=== PATIENT | male | born 1980 | race Caucasian/White ===

== ENCOUNTER 2018-11-15 19:13 | Inpatient (IN) ==
[2018-11-15] MEDS ORDERED: Ketorolac 15 MG/ML VIAL IVP ONE (19:48)
--- NOTE | 2018-11-15 20:01 | Emergency Department Note ---
Disposition Clinical Impression: Cellulitis of scrotum Disposition: Admitted As Inpatient Condition: Good Referrals: NONE,PCP [Primary Care Provider] - Time of Disposition: 20:01 General Adult HPI - General Time Seen by Provider: 11/15/18 19:15 - Related Data Home Medications Medication Instructions Recorded Confirmed No Known Home Drugs 11/15/18 11/15/18 Allergies Allergy/AdvReac Type Severity Reaction Status Date / Time hydrocodone Allergy Hives Verified 10/05/15 17:07 Past Medical History - Past Medical History Medical history: Reports: no medical history Psychiatric history: Reports: no psych history - Social History Smoking Status: Current every day smoker Smokeless Tobacco Status: No Alcohol use: Reports: none Drug use: Reports: none Course - Consultations Consultation #1: discusseed case with Dr. ortega who will see in consult. He would like results called back if the are acute in nature ex. fourneires. otherwise no call back is needed. Time: 19:59 Attestation Statement - Attestation Attestation: I reviewed the residents documentation and agree with the residents assessment and plan of care. I have personally had face to face time with the patient. (Brief History, Brief Exam, and MDM) I personally supervised and was present for the scott/critical portions of the following procedures completed by the resident: (add procedures performed here). 38 year old male presents to the ED from [facility] for concerns of scrotal cellutlisi tosincialo was seen on aBCT today and he is having incresed swelling and redness to the area. It otherwise is not creptius and I do not appreciate gas formation among the scrotum and he is not a diabetic. He came started on vanc, we willc ontinue and add blood work and admit to medicine after consutlation with urology. Report given statse that is aware that evens will be coming to the ED for admision.
--- NOTE | 2018-11-15 20:11 | Emergency Department Note ---
Disposition Clinical Impression: Cellulitis of scrotum Disposition: Admitted As Inpatient Condition: Good Time of Disposition: 19:00 General Adult HPI - General Chief complaint: ED Urogenital-Male Stated complaint: Left testicular pain and swelling Time Seen by Provider: 11/15/18 19:15 Nursing Notes Reviewed: Yes - History of Present Illness HPI Narrative: 38M presents with 1 day history of left testicular pain and swelling from [place]. Patient is accompanied by . He reports hematuria without dysuria x 3 weeks. However, he noticed left testicular swelling and pain yesterday night that has worsened today. Of note, he reports right lower wisdom tooth was hurting him and he used a screwdriver that has removed an partial tooth. Symptoms of fever, nausea, and testicular pain worsened after this. He denies any recent testicular trauma, penile discharge, testicular bleeding, or testicular ulceration. He denies history of diabetes or hypertension, but does drink 1x [address] abdomen/pelvis without contrast at [place] demonstrated 2.6 cm cystic structure and findings consistent with cellulitis vs reactive hydrocele. There is haziness of the scrotal subcutaneous fat. Patient is here for testicular ultrasound and further work up and management. Denies CP, SOB, abdominal pain. Does admit to fatigue and feeling sick overall. Pt Subjective Complaint: Left testicular pain and swelling Onset (ago): day(s) (1) Location: genitals Pain Scale: 9 Quality: sharp, constant Consistency: constant - Related Data Home Medications Medication Instructions Recorded Confirmed No Known Home Drugs 11/15/18 11/15/18 Allergies Allergy/AdvReac Type Severity Reaction Status Date / Time hydrocodone Allergy Hives Verified 10/05/15 17:07 Review of Systems: As Per HPI Constitutional: Reports: fever Eyes: Denies: eye pain ENT ED: Denies: ear pain Cardiovascular: Denies: chest pain, palpitations Respiratory: Denies: cough Gastrointestinal: Reports: nausea. Denies: abdominal pain Genitourinary: Reports: dysuria, hematuria Musculoskeletal: Denies: back pain Integumentary: Denies: rash Neurological: Denies: headache Psychiatric: Denies: anxiety Past Medical History - Past Medical History Attestation: Yes The following information was validated with the patient. Source: patient Medical history: Reports: no medical history Psychiatric history: Reports: no psych history - Social History Smoking Status: Current every day smoker Smokeless Tobacco Status: No Alcohol use: Reports: none Drug use: Reports: none Physical Exam - General Limitations: no limitations General appearance: alert, in no apparent distress - Head Head exam: atraumatic, normocephalic, normal inspection - Eye Eye exam: Present: normal appearance, PERRL, EOMI - Expanded Eye Exam Pupils: Left: reactive - ENT ENT exam: normal exam, normal oropharynx, mucous membranes moist - Expanded ENT Exam External ear exam: Present: normal external inspection Mouth exam: Present: normal external inspection Teeth exam: Present: normal inspection Throat exam: Present: normal inspection - Neck Neck exam: Present: normal inspection, full ROM, trachea midline - Chest Chest inspection: Present: normal inspection, symmetric chest wall rise - Respiratory Respiratory exam: Present: normal lung sounds bilaterally - Cardiovascular Cardiovascular exam: Present: regular rate, normal rhythm, normal heart sounds - Abdominal Exam Abdominal exam: Present: soft, Non-Tender. Absent: tenderness, distention, guarding, rebound, rigidity - Male exam: Present: testicular tenderness (left, enlarged), scrotal swelling (left. ) - Extremities Exam Extremities exam: Present: normal inspection, full ROM. Absent: tenderness, pedal edema - Expanded Upper Extremity Exam Shoulder exam: Present: normal inspection, full ROM Arm exam: Present: normal inspection, full ROM Elbow exam: Present: normal inspection, full ROM Forearm/Wrist exam: Present: normal inspection, full ROM Hand exam: Present: normal inspection, full ROM Vascular exam: Normal: capillary refill, radial pulse - Expanded Lower Extremity Exam Hip/Pelvis exam: Present: normal inspection, full ROM Upper leg exam: Present: normal inspection, full ROM Knee exam: Present: normal inspection, full ROM Lower leg exam: Present: normal inspection, full ROM Ankle exam: Present: normal inspection, full ROM Foot/toe exam: Present: normal inspection, full ROM Neurovascular/Tendon exam: Absent: motor deficit, sensory deficit, tendon deficit - Back Exam Back exam: Present: normal inspection, full ROM. Absent: tenderness - Neurological Exam Neurological exam: Present: alert, oriented X3 - Expanded Neurological Exam Patient oriented to: Present: person, place, time Coma Scale Eye Opening: Spontaneous Coma Scale Motor Response: Obeys Commands Coma Scale Verbal Response: Oriented Coma Scale Total: 15 - Psychiatric Psychiatric exam: Present: normal affect, normal mood - Skin Skin exam: Present: warm, dry, intact, normal color Course Course Narrative: White count greater than 30. Testicular ultrasound without evidence of testicular torsion. Increased vascularity of the testes and epididymis suggesting epididymal orchitis. Patient started on Vanco and Zosyn. Start pain management - Reevaluation(s) Reevaluation #1: Dr. Guzman aware the patient will be admitted for observation and he will see him tomorrow. Vital Signs Pulse Rate 100 11/15/18 19:17 Respiratory Rate 16 11/15/18 19:17 Blood Pressure 142/93 11/15/18 19:17 O2 Sat by Pulse Oximetry 100 11/15/18 19:17 Temperature 99.9 F H 11/16/18 01:24 Pulse Rate 104 11/16/18 01:24 Respiratory Rate 16 11/16/18 01:24 Blood Pressure 148/87 11/16/18 01:24 O2 Sat by Pulse Oximetry 99 11/16/18 01:24 Oxygen Delivery Oxygen Delivery Room Air Medical Decision Making - MDM Narrative Medical decision making narrative: Patient admitted for epididymal orchitis currently on Vanc and zosyn. Urology is aware. - Medical Records Medical records reviewed: Yes I reviewed the patient's medical records. - Lab Data Lab results reviewed: Yes I reviewed the patient's lab results. Result diagrams: 11/15/18 20:24 11/15/18 20:24 Lab Results 11/15/18 11/15/18 11/15/18 Range/Units 20:24 20:24 20:25 WBC 35.3 H* (4.3-11.1) K/mcL RBC 3.97 L (4.19-5.50) M/mcL Hgb 11.7 L (12.9-16.9) g/dL Hct 35.2 L (37.5-50.1) % MCV 88.7 (83.0-100.0) fL MCH 29.5 (28.0-33.3) pg MCHC 33.2 (31.6-35.5) g/dL RDW 15.9 H (11.5-14.5) % Plt Count 280 (140-400) K/mcL MPV 9.5 (9.4-12.4) fL Seg Neutrophils % 78.0 % Band Neutrophils % 8.0 H (0-4) % Lymphocytes % 4.0 % Monocytes % 10.0 % Neutrophils # 30.4 H (1.6-8.9) K/mcL Lymphocytes # 1.4 (0.6-4.6) K/mcL Monocytes # 3.5 H (0.0-1.3) K/mcL Platelet Estimate Normal (Normal) Hypochromasia Present A (Not Present) Sodium 131 L (136-145) mEq/L Potassium 3.6 (3.5-5.1) mEq/L Chloride 97 L (98-107) mEq/L Carbon Dioxide 27 (23-29) mEq/L BUN 10 (6-20) mg/dL Creatinine 0.81 (0.70-1.30) mg/dL Est GFR ( Amer) > 60 (> 60) Est GFR (Non-Af Amer) > 60 (> 60) BUN/Creatinine Ratio 12 (6-26) Glucose 97 (70-105) mg/dL Calculated Osmolality 271 L (280-300) Lactic Acid 1.3 (0.5-2.2) mmol/L Calcium 8.6 (8.6-10.3) mg/dL Total Bilirubin 0.8 (0.3-1.0) mg/dL AST 23 (13-39) Units/L ALT 25 (7-52) Units/L Alkaline Phosphatase 73 (34-104) Units/L Serum Total Protein 6.8 (6.4-8.9) g/dL Albumin 3.7 (3.5-5.7) g/dL Globulin 3.1 (2.4-3.5) g/dL Albumin/Globulin Ratio 1.2 (1.1-2.2) - Radiology Data Radiology results reviewed: Yes I reviewed the patient's radiology results.
[2018-11-15 20:43] LABS: Mean Platelet Volume 9.5 fL (9.4-12.4); Red Cell Distribution Width 15.9 % (11.5-14.5)
[2018-11-15 20:44] LABS: Hematocrit 35.2 % (37.5-50.1); Hemoglobin 11.7 g/dL (12.9-16.9); Mean Corpuscular HGB Conc 33.2 g/dL (31.6-35.5); Mean Corpuscular Hemoglobin 29.5 pg (28.0-33.3); Mean Corpuscular Volume 88.7 fL (83.0-100.0); Platelet Count 280 K/mcL (140-400); Red Blood Count 3.97 M/mcL (4.19-5.50)
[2018-11-15 20:50] LABS: White Blood Count 35.3 K/mcL (4.3-11.1)
[2018-11-15 21:00] LABS: Alanine Aminotransferase 25 Units/L (7-52); Albumin 3.7 g/dL (3.5-5.7); Albumin/Globulin Ratio 1.2 (1.1-2.2); Alkaline Phosphatase 73 Units/L (34-104); Aspartate Amino Transferase 23 Units/L (13-39); BUN/Creatinine Ratio 12 (6-26); Bilirubin,Total 0.8 mg/dL (0.3-1.0); Blood Urea Nitrogen 10 mg/dL (6-20); Calcium 8.6 mg/dL (8.6-10.3); Carbon Dioxide 27 mEq/L (23-29); Chloride 97 mEq/L (98-107); Globulin 3.1 g/dL (2.4-3.5); Glucose 97 mg/dL (70-105); Osmolality,Calculated 271 (280-300); Potassium 3.6 mEq/L (3.5-5.1); Sodium 131 mEq/L (136-145); Total Protein 6.8 g/dL (6.4-8.9); eGFR For African Americans > 60 (> 60); eGFR For Non-African Americans > 60 (> 60)
[2018-11-15] MEDS ORDERED: Piperacillin/Tazobactam 3.375 GM in 0.9 % Sodium Chloride Mini Bag 100 ML IVPB ONE (21:01)
[2018-11-15 21:14] LABS: Lymphocytes # 1.4 K/mcL (0.6-4.6); Monocytes # 3.5 K/mcL (0.0-1.3); Neutrophils # 30.4 K/mcL (1.6-8.9); Platelet Estimate Normal (Normal)
[2018-11-15 21:15] LABS: Hypochromasia Present (Not Present)
[2018-11-15] MEDS ORDERED: 0.9 % Sodium Chloride 1,000 ML IVC ONE (22:29)
[2018-11-16] MEDS ORDERED: traMADol 50 MG TABLET PO PRN ×2 (00:14→13:47)
[2018-11-16] MEDS ORDERED: Naloxone 0.4 MG/ML INJ IVP PRN ×2 (00:14→00:15)
[2018-11-16] MEDS ORDERED: *HR* OxyCODONE Immed Rel 5 MG TABLET PO PRN (00:14)
[2018-11-16] MEDS ORDERED: Acetaminophen 325 MG TABLET PO PRN (00:14)
[2018-11-16] MEDS ORDERED: Ketorolac 30 MG/ML VIAL IVP PRN ×2 (00:15→11:52)
[2018-11-16] MEDS ORDERED: *HR* HYDROmorphone (PF) 1 MG/ML SYRINGE IVP ONE (00:15)
[2018-11-16] MEDS: 0.9 % Sodium Chloride 1,000 ML IVC SCH ×3 (01:30→21:22)
--- NOTE | 2018-11-16 01:51 | Internal Med History&Physical ---
Date of Encounter: 11/16/18 Time of Encounter: 01:50 Internal Medicine - H&P: HPI Chief complaint: scrotal pain Admitted From: Home Plans for Post Hospital Care: Home History of present illness: Reilly Venegas is a 38-year-old man who reports a prior history of substance use disorder presenting to [place] yesterday with a complaint of left testicular pain and swelling. History is somewhat convoluted as he says the symptoms started yesterday after he attempted to use a screwdriver to remove a tooth that was tracy ting him. He subsequently developed fever, nausea and testicular pain after this. In the same vein, he reports having hematuria without dysuria for the past 2-3 weeks and therefore it is unclear if this is related. He denied any trauma to the area, penile discharge or bleeding. His only reported comorbidities hypertension and he denies being a diabetic. At [place] a CT scan was done with report suggesting haziness of the scrotal subcutaneous fat and reactive hydrocele consistent with cellulitis with recommendation for a scrotal ultrasound. He was then transferred to our ER for this test which demonstrated normal homogeneous echotexture without focal lesion in both testicles but there was evidence of increased vascularity to the testes. Diffuse subcutaneous edema with overlying skin thickening was noted on imaging. Lab work revealed a leukocyte count of 35.3 so he was started on broad-spectrum empiric antibiotics. On the time of my assessment is chief complaint was pain in the scrotal area exacerbated by movement. Vitals: Reviewed General: Well-developed man who appears very unkempt lying in bed with antalgic posturing. Skin: Dirty, dry. HEENT: Moist mucous membranes. No conjunctivae pallor. Neck: No lymphadenopathy. No JVD. No carotid bruits. No palpable thyroid. Chest: Normal thoracic expansion. Normal breath sounds. Clear to auscultation. Heart: Normal S1 & S2; rhythmic. No rubs or murmurs. Abdomen: Non-distended, soft and non-tender to palpation. No peritoneal re action. : Diffuse scrotal swelling with firmness palpable on the left hemiscrotum, diffusely erythematous with notable vascularity visible. Exquisitely tender to touch and warm. No lesions or ulcerations noted on the scrotum or penile shaft. No penile discharge. Bilateral inguinal lymph nodes palpable. Extremities: No clubbing, cyanosis or edema. No calf tenderness. Normal distal pulses. Neurological: Awake, alert and oriented to person, place and time. No focal deficits. Psych: Affect appropriate. Assessment/Plan 1. Sepsis secondary to skin/soft tissue infection: As evidenced by high grade leukocytosis and tachycardia with a source. The patient has diffuse scrotal cellulitis but fortunately is without signs of [place] gangrene. Needless to say if inadequately treated could become a rapidly progressive process. It is possible that he may have developed transient bacteremia with seeding to the scrotum thereby causing this inflammatory process. Will get urine and blood cultures. Check urine for STDs. Start empiric vancomycin/PipTazo in the interim with aggressive fluid resuscitation. Keep scrotal sac elevated with ice packs applied. Urology consult requested. Serial examinations needed. 2. Substance use disorder: Says he only used to do pills but no longer. Will check a UDS. 3. Hypertension: Will ensure his pain is well controlled before initiating any antihypertensive regimen. 4. DVT prophylaxis: Antiembolic stockings ordered. Past Med Surg Social Fam HX - Past Medical History Medical history: no medical history Psychiatric history: no psych history - Past Surgical History Additional surgical history: RT KNEE SURGERY -ARTHROSCOPIC TO REPAIR CARTLIGE - Social History Smoking Status: Current every day smoker Smokeless Tobacco Status: No Alcohol use: none Drug use: none - Family History Mother Adopted: No Hx Family Cardiac Disorders: Yes (heart attack, grandpa) Hx Family Respiratory Disorders: No Hx Family Cancer: No Hx Family GI Disorders: No Hx Family Genitourinary Disorders: No Hx Family Endocrine Disorder: Yes Hx Family Musculoskeletal Disorders: No Hx Family Neuromuscular Disorders: No Hx Family Neurologic Disorders: No Hx Family HEENT Disorders: No Hx Family Autoimmune Disorders: No Hx Family Reproductive Disorders: No Hx Family Psychosocial Disorders: No Hx Family Medical Disorders: No Internal Medicine - H&P: Meds No Known Home Drugs 11/15/18 [History] Allergy/AdvReac Type Severity Reaction Status Date / Time hydrocodone Allergy Hives Verified 10/05/15 17:07 All Systems PM: A 10-system review of systems was performed and is negative for pertinent findings except as documented above in the HPI. - Constitutional Vitals: Temp Pulse Resp BP Pulse Ox 99.9 F H 104 16 148/87 99 11/16/18 01:24 11/16/18 01:24 11/16/18 01:24 11/16/18 01:24 11/16/18 01:24 Exam: . Internal Med - H&P Results - Labs CBC & Chem 7: 11/15/18 20:24 11/15/18 20:24 Labs: Short CBC 11/15/18 Range/Units 20:24 WBC 35.3 H* (4.3-11.1) K/mcL Hgb 11.7 L (12.9-16.9) g/dL Hct 35.2 L (37.5-50.1) % Plt Count 280 (140-400) K/mcL Neutrophils # 30.4 H (1.6-8.9) K/mcL BMP 11/15/18 20:24 Sodium 131 L Potassium 3.6 Chloride 97 L Carbon Dioxide 27 BUN 10 Creatinine 0.81 Glucose 97 Calcium 8.6 Liver Function 11/15/18 Range/Units 20:24 Total Bilirubin 0.8 (0.3-1.0) mg/dL AST 23 (13-39) Units/L ALT 25 (7-52) Units/L Alkaline Phosphatase 73 (34-104) Units/L Albumin 3.7 (3.5-5.7) g/dL - Impressions ITS Impressions Scrotum Ultrasound 11/15/18 19:15 IMPRESSION: No evidence of testicular torsion. Increased vascularity of the testes and epididymis suggesting epididymal orchitis. Diffuse subcutaneous edema with overlying skin thickening compatible with inflammation. D/ / Natacha Thurman Cha, MD / Natacha Thurman Cha, MD Interpreting Provider: Natacha Thurman Cha, MD - Time Spent With Patient Total time spent is greater than 50% in coordination of care (as documented) at patient's floor/unit and/or counseling patient: Greater than 35 minutes
[2018-11-16 06:16] LABS: Monocytes % 5.7 %; Red Cell Distribution Width 15.9 % (11.5-14.5)
[2018-11-16 06:17] LABS: Basophils # 0.1 K/mcL (0.0-0.2); Basophils % 0.2 %; Hematocrit 32.6 % (37.5-50.1); Hemoglobin 10.9 g/dL (12.9-16.9); Immature Granulocytes % 2.1 % (0-4); Lymphocytes % 4.9 %; Mean Corpuscular HGB Conc 33.4 g/dL (31.6-35.5); Mean Corpuscular Hemoglobin 29.6 pg (28.0-33.3); Mean Corpuscular Volume 88.6 fL (83.0-100.0); Mean Platelet Volume 9.4 fL (9.4-12.4); Monocytes # 2.4 K/mcL (0.0-1.3); Neutrophils # 36.4 K/mcL (1.6-8.9); Platelet Count 267 K/mcL (140-400); Red Blood Count 3.68 M/mcL (4.19-5.50); Segmented Neutrophils % 87.1 %
[2018-11-16 06:21] LABS: Lymphocytes # 2.1 K/mcL (0.6-4.6); White Blood Count 41.8 K/mcL (4.3-11.1)
[2018-11-16 06:35] LABS: Alanine Aminotransferase 19 Units/L (7-52); Albumin 3.4 g/dL (3.5-5.7); Albumin/Globulin Ratio 1.3 (1.1-2.2); Alkaline Phosphatase 71 Units/L (34-104); Aspartate Amino Transferase 19 Units/L (13-39); BUN/Creatinine Ratio 13 (6-26); Bilirubin,Direct 0.2 mg/dL (0.0-0.2); Bilirubin,Indirect 0.4 mg/dL (0.0-1.2); Bilirubin,Total 0.6 mg/dL (0.3-1.0); Blood Urea Nitrogen 9 mg/dL (6-20); Calcium 8.4 mg/dL (8.6-10.3); Carbon Dioxide 25 mEq/L (23-29); Chloride 98 mEq/L (98-107); Globulin 2.7 g/dL (2.4-3.5); Glucose 149 mg/dL (70-105); Magnesium 1.4 mg/dL (1.6-2.6); Osmolality,Calculated 277 (280-300); Potassium 3.8 mEq/L (3.5-5.1); Sodium 133 mEq/L (136-145); Total Protein 6.1 g/dL (6.4-8.9); eGFR For African Americans > 60 (> 60); eGFR For Non-African Americans > 60 (> 60)
[2018-11-16 06:54] LABS: Amphetamine Screen,Urine Positive ng/mL (Cutoff=1000)
[2018-11-16 06:55] LABS: Barbiturate Screen,Urine Negative ng/mL (Cutoff=200)
[2018-11-16 06:56] LABS: Benzodiazepines Screen,Urine Negative ng/mL (Cutoff=300); Cannabinoid Screen,Urine Positive ng/mL (Cutoff = 50); Cocaine Screen,Urine Negative ng/mL (Cutoff= 300); Opiate Screen,Urine Negative ng/mL (Cutoff=300); Phencyclidine Screen,Urine Negative ng/mL (Cutoff=25)
[2018-11-16 07:17] LABS: Platelet Estimate Normal (Normal)
[2018-11-16] MEDS ORDERED: Piperacillin/Tazobactam 3.375 GM in 0.9 % Sodium Chloride Mini Bag 100 ML IVPB SCH (08:00)
[2018-11-16 08:29] LABS: Chlamydia Trachomatis DNA Ur NOT DETECTED (Not Detect)
--- NOTE | 2018-11-16 10:40 | Internal Med Progress Note ---
Hospitalist Progress Note - Encounter Date of Encounter: 11/16/18 Time of Encounter: 10:00 - Subjective Interval History: Mr Venegas continues to complain of scrotal discomfort and pain and maintains that it became abrupt after he manipulated his abscessed tooth. Denies any history of STDs denies any penile discharge. GEN: admits to fever, chills or malaise HEENT: Denies headache blurriness, or dysphagia RESP: Denies SOB or cough CV: Denies chest pain or palpitations GI: Denies Nausea, vomiting, diarrhea or constipation Reviewed current in hospital medications with modifications see orders Reviewed Routine labs - Exam Vitals: Temp Pulse Resp BP Pulse Ox 98.3 F 77 16 149/68 98 11/16/18 06:57 11/16/18 06:57 11/16/18 06:57 11/16/18 06:57 11/16/18 08:25 Exam: GEN: Mildly distressed male, A&O x 3, Pleasant and conversant his at his bedside HEENT: Head is atraumatic multiple tooth abscesses noted overall poor dentition SKIN: [place] warm acyanotic not jaundice, multiple healed scars/lesions noted on bilateral upper and lower extremity HEART: RRR somewhat tachycardic, no murmurs LUNGS: CTA no wheeze or crackles, overall non labored ABDOMEN; Soft, non tender or distended, BS x 4 normactive nurse zelda chaperoned exam, circumcised male no penile ulcers lesions or discharge. Quite engorged tender scrotum with a hard palpable mass EXT: No LE edema, Pedal pulses 1+, radial pulses 2+ PSYCH: Mood and affect is appropriate - Assessment and Plan (1) Sepsis Current Visit: Yes Status: Acute Assessment and Plan: Patient is septic with the likely source being the scrotum cellulitis and abscess, leukocytosis trended up from 35.3-41.8 while on vancomycin and Zosyn. Due to concerns of possible testicular penetration and amicable agent was switched to ciprofloxacin and add metronidazole for tissue penetration. STDs is how the differential of the patient and his was at the bedside denies any prior history. Patient seems to attribute these to manipulation of his abscess tooth he does appear to have poor dentition due to concern for hematogenous seeding will obtain 2 D echo given his history of substance abuse (2) Cellulitis of scrotum Current Visit: Yes Status: Acute Assessment and Plan: GC Chlamydia not dictated he denies any history of STDs. Physical exam no penile discharge, significant scrotal edema with a hard mass palpated, ultrasound of the testicle was unrevealing. As aforementioned switched antibiotics to Cipro and Flagyl and vancomycin. He was evaluated by urology we appreciate the input (3) Substance abuse Current Visit: Yes Status: Acute Assessment and Plan: Patient denies any recent use, urine tox screen was positive for amphentermine and marijuana (4) Hypertension Current Visit: Yes Status: Acute Assessment and Plan: Patient is septic we will hold any home antihypertensive (5) Dental abscess Current Visit: Yes Status: Acute Assessment and Plan: Oral exam revealed multiple dental abscesses, hematogenous seeding is of concern DVT Prophylaxis: Do not anticipate patient to be ambulatory heparin subcutaneous - Time Spent with Patient Total time spent is greater than 50% in coordination of care (as documented) at patient's floor/unit and/or counseling patient: Internal Medicine: Result - Labs CBC & Chem 7: 11/16/18 06:03 11/16/18 06:03 Labs: Short CBC 11/15/18 11/16/18 Range/Units 20:24 06:03 WBC 35.3 H* 41.8 H* (4.3-11.1) K/mcL Hgb 11.7 L 10.9 L (12.9-16.9) g/dL Hct 35.2 L 32.6 L (37.5-50.1) % Plt Count 280 267 (140-400) K/mcL Neutrophils # 30.4 H 36.4 H (1.6-8.9) K/mcL BMP 11/15/18 11/16/18 20:24 06:03 Sodium 131 L 133 L Potassium 3.6 3.8 Chloride 97 L 98 Carbon Dioxide 27 25 BUN 10 9 Creatinine 0.81 0.69 L Glucose 97 149 H Calcium 8.6 8.4 L Liver Function 11/15/18 11/16/18 Range/Units 20:24 06:03 Total Bilirubin 0.8 0.6 (0.3-1.0) mg/dL Direct Bilirubin 0.2 (0.0-0.2) mg/dL AST 23 19 (13-39) Units/L ALT 25 19 (7-52) Units/L Alkaline Phosphatase 73 71 (34-104) Units/L Albumin 3.7 3.4 L (3.5-5.7) g/dL - Impressions Impressions Scrotum Ultrasound 11/15/18 19:15 IMPRESSION: No evidence of testicular torsion. Increased vascularity of the testes and epididymis suggesting epididymal orchitis. Diffuse subcutaneous edema with overlying skin thickening compatible with inflammation. D/ / Natacha Thurman Cha, MD / Natacha Thurman Cha, MD Interpreting Provider: Natacha Thurman Cha, MD Consult Discharge Plan - Plan Referrals: Tracy Saavedra CNP [Advanced Practice Nurse] - 11/24/18 11:15 am
[2018-11-16] MEDS: MetroNIDAZOLE 500 MG/100 ML 500 MG/100 ML BAG IVPB SCH ×3 (11:25→23:32)
--- NOTE | 2018-11-16 14:34 | Urology - Consult Note ---
Date of Encounter: 11/16/18 Time of Encounter: 12:45 - Assessment and Plan (1) Cellulitis of scrotum Current Visit: Yes Status: Acute Assessment and plan: Patient is a 38-year-old male who presents with diffuse scrotal cellulitis. Vital signs are currently stable and afebrile. White blood cell count is markedly elevated at 41.8. Patient is receiving IV Cipro, Flagyl and vancomycin. Blood and urine cultures are pending. CT reveals a 2.6 and left epididymal cyst and evidence of cellulitis. Scrotal ultrasound redemonstrates bilateral epididymoorchitis. There is no clinical evidence of Destiney's gangrene. At this time, I do not anticipate any urologic surgical intervention. We will continue with IV antibiotics, await cultures and closely follow patient. Urology CN:[facility] Consult date: 11/16/18 Reason for consult Urology: Other (Scrotal cellulitis) Requesting physician: Mary Yates History of present illness: Patient is a 38-year-old male who presents with diffuse scrotal cellulitis. Patient reports a 1 day history of severe scrotal pain that brought him to the emergency department. Patient has undergone both a CT of the abdomen and pelvis as well as a scrotal ultrasound. Patient has a known history of substance abuse, and urine drug screen is positive for amphetamines and marijuana. Kalin wyman is accompanied by his who also contributes to part of his past medical history. Patient's reports he is "hyperglycemic" but does not monitor his blood glucose or take any diabetic medications. Patient's also reports he has a history of prostatitis, BPH and renal stones. Patient was evaluated by Dr. Childs in 2016, but he has been lost to follow-up since this initial appointment. Patient currently denies any dysuria, gross hematuria, fever, chills or incontinence. Patient has a long-standing history of urinary hesitancy, frequency, and urgency, but he states this is normal for him. Past Med Surg Social Fam HX - Past Medical History Medical history: no medical history Psychiatric history: no psych history - Past Surgical History Additional surgical history: RT KNEE SURGERY -ARTHROSCOPIC TO REPAIR CARTLIGE - Social History Smoking Status: Current every day smoker Smokeless Tobacco Status: No Alcohol use: none Drug use: none - Family History Mother Adopted: No Hx Family Cardiac Disorders: Yes (heart attack, grandpa) Hx Family Respiratory Disorders: No Hx Family Cancer: No Hx Family GI Disorders: No Hx Family Genitourinary Disorders: No Hx Family Endocrine Disorder: Yes Hx Family Musculoskeletal Disorders: No Hx Family Neuromuscular Disorders: No Hx Family Neurologic Disorders: No Hx Family HEENT Disorders: No Hx Family Autoimmune Disorders: No Hx Family Reproductive Disorders: No Hx Family Psychosocial Disorders: No Hx Family Medical Disorders: No Medications and Allergies No Known Home Drugs 11/15/18 [History] Allergy/AdvReac Type Severity Reaction Status Date / Time hydrocodone Allergy Hives Verified 10/05/15 17:07 Review of Systems - Constitutional no chills, no fatigue, no fever(s) - EENT Nose, mouth and throat: no dizziness, no headache(s) - Cardiovascular no chest pain, no diaphoresis, no dyspnea - Respiratory no cough, no dyspnea - Gastrointestinal no abdominal pain, no nausea, no vomiting - Genitourinary genital pain, scrotal swelling, testicular pain, urinary frequency, urinary hesitancy, urinary urgency, no change in urinary stream, no difficulty urinating, no dysuria, no flank pain, no hematuria, no penile discharge, no urinary incontinence - Musculoskeletal no back pain, no muscle weakness - Integumentary erythema, lesions (Diffuse integumentary manifestation from amphetamine use), swelling - Neurological no confusion, no weakness - Psychiatric no anxiety, no confusion - Hematologic/Lymphatic no easy bleeding, no easy bruising - Allergic/Immunologic no throat swelling, no wheezing Exam Initial Vital Signs Pulse Resp BP Pulse Ox 100 16 142/93 100 11/15/18 19:17 11/15/18 19:17 11/15/18 19:17 11/15/18 19:17 - General physical appearance Present: no distress, no pain - Eyes Present: PERRL, normal ocular movement - ENT Present: no hearing loss, no congestion - Neck Present: no masses, trachea midline, no lymphadenopathy - Respiratory Present: normal respiratory effort - Cardiovascular Cardiovascular exam IM: RRR - Abdomen Abdomen: Present: soft, non tender. Absent: distended - Genitourinary normal penis with no external lesions, testicles present scrotal mass/hydrocele: bilateral (Diffuse scrotal erythema, edema and i nduration, more so on the left hemiscrotum; no identifiable pointed abscess) Penis: Present: circumsized Urethral meatis: Present: patent Testicles: Present: enlarged, tender Epididymis: Present: tender - Integumentary Present: no rash, no abnormal pigmentation - Neurologic Present: normal coordination - Musculoskeletal Present: other (Normal posture, no pedal edema) Urology Results - Labs 11/16/18 06:03 11/16/18 06:03 Abnormal lab results WBC 41.8 K/mcL (4.3-11.1) H* 11/16/18 06:03 RBC 3.68 M/mcL (4.19-5.50) L 11/16/18 06:03 Hgb 10.9 g/dL (12.9-16.9) L 11/16/18 06:03 Hct 32.6 % (37.5-50.1) L 11/16/18 06:03 RDW 15.9 % (11.5-14.5) H 11/16/18 06:03 Band Neutrophils % 8.0 % (0-4) H 11/15/18 20:24 Neutrophils # 36.4 K/mcL (1.6-8.9) H 11/16/18 06:03 Monocytes # 2.4 K/mcL (0.0-1.3) H 11/16/18 06:03 Hypochromasia Present (Not Present) A 11/15/18 20:24 Sodium 133 mEq/L (136-145) L 11/16/18 06:03 Chloride 97 mEq/L (98-107) L 11/15/18 20:24 Creatinine 0.69 mg/dL (0.70-1.30) L 11/16/18 06:03 Glucose 149 mg/dL (70-105) H 11/16/18 06:03 Calculated Osmolality 277 (280-300) L 11/16/18 06:03 Calcium 8.4 mg/dL (8.6-10.3) L 11/16/18 06:03 Magnesium 1.4 mg/dL (1.6-2.6) L 11/16/18 06:03 Serum Total Protein 6.1 g/dL (6.4-8.9) L 11/16/18 06:03 Albumin 3.4 g/dL (3.5-5.7) L 11/16/18 06:03 Ur Amphetamines Screen Positive ng/mL (Hxpule=9841) H 11/16/18 06:34 U Marijuana (THC) Screen Positive ng/mL (Cutoff = 50) H 11/16/18 06:34 Diabetes panel 11/15/18 11/16/18 Range/Units 20:24 06:03 Sodium 131 L 133 L (136-145) mEq/L Potassium 3.6 3.8 (3.5-5.1) mEq/L Chloride 97 L 98 (98-107) mEq/L Carbon Dioxide 27 25 (23-29) mEq/L BUN 10 9 (6-20) mg/dL Creatinine 0.81 0.69 L (0.70-1.30) mg/dL Glucose 97 149 H (70-105) mg/dL Calcium 8.6 8.4 L (8.6-10.3) mg/dL AST 23 19 (13-39) Units/L ALT 25 19 (7-52) Units/L Alkaline Phosphatase 73 71 (34-104) Units/L Albumin 3.7 3.4 L (3.5-5.7) g/dL Calcium panel 11/15/18 11/16/18 Range/Units 20:24 06:03 Calcium 8.6 8.4 L (8.6-10.3) mg/dL Albumin 3.7 3.4 L (3.5-5.7) g/dL Pituitary panel 11/15/18 11/16/18 Range/Units 20:24 06:03 Sodium 131 L 133 L (136-145) mEq/L Potassium 3.6 3.8 (3.5-5.1) mEq/L Chloride 97 L 98 (98-107) mEq/L Carbon Dioxide 27 25 (23-29) mEq/L BUN 10 9 (6-20) mg/dL Creatinine 0.81 0.69 L (0.70-1.30) mg/dL Glucose 97 149 H (70-105) mg/dL Calcium 8.6 8.4 L (8.6-10.3) mg/dL Adrenal panel 11/15/18 11/16/18 Range/Units 20:24 06:03 Sodium 131 L 133 L (136-145) mEq/L Potassium 3.6 3.8 (3.5-5.1) mEq/L Chloride 97 L 98 (98-107) mEq/L Carbon Dioxide 27 25 (23-29) mEq/L BUN 10 9 (6-20) mg/dL Creatinine 0.81 0.69 L (0.70-1.30) mg/dL Glucose 97 149 H (70-105) mg/dL Calcium 8.6 8.4 L (8.6-10.3) mg/dL Total Bilirubin 0.8 0.6 (0.3-1.0) mg/dL AST 23 19 (13-39) Units/L ALT 25 19 (7-52) Units/L Alkaline Phosphatase 73 71 (34-104) Units/L Albumin 3.7 3.4 L (3.5-5.7) g/dL All other labs normal. - Imaging CT scan - abdomen: report reviewed, image reviewed CT scan - pelvis: report reviewed, image reviewed Additional studies: Scrotal ultrasound Consult Discharge Plan - Plan Referrals: NONE,PCP [Primary Care Provider] -
[2018-11-16] MEDS ORDERED: 0.9 % Sodium Chloride 1,000 ML ONE (21:12)
[2018-11-16] MEDS: *HR* Heparin 5,000 UNIT/ML VIAL SQ SCH ×2 (21:21→22:06)
[2018-11-16] MEDS: *HR* OxyCODONE Immed Rel 5 MG TABLET PO PRN (21:21)
[2018-11-16] MEDS: Nicotine 21 MG PATCH.TD24 TD SCH (22:04)
[2018-11-17 04:37] LABS: Basophils % 0.2 %; Eosinophils % 0.5 %; Hemoglobin 10.3 g/dL (12.9-16.9); Lymphocytes % 6.3 %
[2018-11-17 04:38] LABS: Basophils # 0.1 K/mcL (0.0-0.2); Hematocrit 31.5 % (37.5-50.1); Immature Granulocytes % 2.1 % (0-4); Lymphocytes # 1.9 K/mcL (0.6-4.6); Mean Corpuscular HGB Conc 32.7 g/dL (31.6-35.5); Mean Corpuscular Hemoglobin 29.1 pg (28.0-33.3); Mean Platelet Volume 9.7 fL (9.4-12.4); Monocytes # 1.9 K/mcL (0.0-1.3); Monocytes % 6.2 %; Platelet Count 266 K/mcL (140-400); Red Blood Count 3.54 M/mcL (4.19-5.50); Segmented Neutrophils % 84.7 %
[2018-11-17 04:41] LABS: Eosinophils # 0.2 K/mcL (0.0-0.6)
[2018-11-17 04:43] LABS: White Blood Count 30.7 K/mcL (4.3-11.1)
[2018-11-17 04:56] LABS: BUN/Creatinine Ratio 15 (6-26); Blood Urea Nitrogen 10 mg/dL (6-20); Calcium 8.1 mg/dL (8.6-10.3); Carbon Dioxide 26 mEq/L (23-29); Chloride 103 mEq/L (98-107); Glucose 121 mg/dL (70-105); Magnesium 1.5 mg/dL (1.6-2.6); Osmolality,Calculated 278 (280-300); Potassium 3.3 mEq/L (3.5-5.1); Sodium 134 mEq/L (136-145); eGFR For African Americans > 60 (> 60); eGFR For Non-African Americans > 60 (> 60)
[2018-11-17 05:25] LABS: Hypochromasia Present (Not Present); Platelet Estimate Normal (Normal)
[2018-11-17] MEDS: 0.9 % Sodium Chloride 1,000 ML IVC SCH (05:53)
[2018-11-17] MEDS: *HR* Heparin 5,000 UNIT/ML VIAL SQ SCH ×3 (06:03→20:58)
[2018-11-17] MEDS: MetroNIDAZOLE 500 MG/100 ML 500 MG/100 ML BAG IVPB SCH (06:22)
[2018-11-17] MEDS: Nicotine 21 MG PATCH.TD24 TD SCH (08:57)
--- NOTE | 2018-11-17 10:28 | Urology Progress Note ---
Date of Encounter: 11/17/18 Time of Encounter: 09:45 - Assessment and Plan (1) Cellulitis of scrotum Current Visit: Yes Status: Acute Assessment and plan: Patient is a 38-year-old male who presents with scrotal cellulitis, likely epididymoorchitis. Vital signs are stable and afebrile. White blood cell count is improved to 30.7. Urine culture is negative. Patient is receiving IV Cipro, Flagyl and vancomycin. Clinically, patient appears improved, but he is aware this will likely take several weeks to completely resolve. Progress Note Subjective: feels better Narrative: Patient seen and examined sitting upright in bed in no apparent distress. Linda ent reports he is voiding well without difficulty. Patient denies any fever or chills. Objective Initial Vital Signs Pulse Resp BP Pulse Ox 100 16 142/93 100 11/15/18 19:17 11/15/18 19:17 11/15/18 19:17 11/15/18 19:17 - General physical appearance Present: no distress, no pain - Respiratory Present: normal expansion, normal respiratory effort - Abdomen Present: soft, non tender. Absent: distended - Genitourinary Present: normal penis with no external lesions scrotal mass/hydrocele: bilateral (Scrotum appears diffusely erythematous and edematous, but this appears much improved from yesterday.) - Integumentary Present: no rash, no abnormal pigmentation - Musculoskeletal Present: normal posture - Psychiatric Present: oriented to time, oriented to person, oriented to place, speech is normal, memory intact - Labs 11/17/18 04:15 11/17/18 04:15 Diabetes panel 11/17/18 Range/Units 04:15 Sodium 134 L (136-145) mEq/L Potassium 3.3 L (3.5-5.1) mEq/L Chloride 103 (98-107) mEq/L Carbon Dioxide 26 (23-29) mEq/L BUN 10 (6-20) mg/dL Creatinine 0.65 L (0.70-1.30) mg/dL Glucose 121 H (70-105) mg/dL Calcium 8.1 L (8.6-10.3) mg/dL Calcium panel 11/17/18 Range/Units 04:15 Calcium 8.1 L (8.6-10.3) mg/dL Pituitary panel 11/17/18 Range/Units 04:15 Sodium 134 L (136-145) mEq/L Potassium 3.3 L (3.5-5.1) mEq/L Chloride 103 (98-107) mEq/L Carbon Dioxide 26 (23-29) mEq/L BUN 10 (6-20) mg/dL Creatinine 0.65 L (0.70-1.30) mg/dL Glucose 121 H (70-105) mg/dL Calcium 8.1 L (8.6-10.3) mg/dL Adrenal panel 11/17/18 Range/Units 04:15 Sodium 134 L (136-145) mEq/L Potassium 3.3 L (3.5-5.1) mEq/L Chloride 103 (98-107) mEq/L Carbon Dioxide 26 (23-29) mEq/L BUN 10 (6-20) mg/dL Creatinine 0.65 L (0.70-1.30) mg/dL Glucose 121 H (70-105) mg/dL Calcium 8.1 L (8.6-10.3) mg/dL Consult Discharge Plan - Plan Referrals: Tracy Saavedra, [facility] [Advanced Practice Nurse] - 11/24/18 11:15 am
[2018-11-17] MEDS ORDERED: Lidocaine -MPF 1% 5 ML AMPUL INFILT ONE (10:39)
--- NOTE | 2018-11-17 12:28 | Infectious Disease Consult ---
Infectious Disease-Consult - Encounter Date/Time Date of Encounter: 11/17/18 Time of Encounter: 12:25 - Data of Consult Patient: new to practice Reason for consult: Scrotal cellulitis Consult date: 11/17/18 Requesting Physician: Rose Morgan Primary Care Provider: PCP NONE - HPI HPI: Mr. Venegas is a 38-year-old male with a past medical history of substance abuse and hypertension. The patient was admitted to the hospital 11/15/18 for scrotal cellulitis. We are consulted 11/17/18 for further workup and treatment recommendations for scrotal cellulitis. Briefly, the patient is a 38-year-old male with past medical history as stated above. The patient presented to [facility] emergency department with complaints of left testicular pain and swelling. He states that the testicular pain started the day after he attempted to remove an abscessed tooth with a screwdriver. Upon arrival, he had a low-grade temp of 100. He was tachycardic, but was otherwise hemodynamically stable. He had leukocytosis with bandemia. Lactic acid and renal function were normal. Urinalysis was negative for pyuria. He had a CT of the abdomen and pelvis that shows a haziness of the scrotal subcutaneous fat compatible with cellulitis. There are also be a component of reactive hydrocele. 2.6 and a meter cystic structure is noted in the superficial aspect of the scrotum adjacent to one of the testes. Scrotal ultrasound showed no evidence of testicular torsion. There is increased vascularity of the testes and epididymis suggesting epididymal orchitis. Diffuse subcutaneous edema with overlying skin thickening compatible with inflammation was also noted. The patient was started empirically IV antibiotics and transferred here for further evaluation. Since admission, the patient has had a low-grade temp of 99.9. He has had some intermittent tachycardia. His white blood cell count has improved. Blood cultures obtained in the emergency department are no growth to date. Urine culture is negative. He was evaluated by urology who does not recommend any surgical intervention at this time. Urine drug screen came back positive for amphetamines and THC. He had a transthoracic echocardiogram that was negative for valvular vegetations. Urine gonococcal and chlamydial testing was negative. Currently, he is on Cipro, Flagyl, and Vanc. We have been asked to evaluate and make further recommendations. During my exam today, the patient endorses a history as stated above. He denies any known trauma to the affected area. No pimples, lesions, or sores. 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 Reports subjective fevers and chills, but denies rigors. Denies any headache or neck pain. Denies chest pain, shortness of breath, or cough. Denies nausea, vomiting, diarrhea, or constipation. Denies abdominal pain. States that about 3 weeks ago he had some gross hematuria and dysuria that resolved spontaneously. He states his appetite is okay. He denies oral thrush or skin rashes. He complains of persistent pain to the scrotal region left worse than right. Denies extension of the pain to the perineum. Denies any pain with defecation. The patient lives at home with his . 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 Smokes a pack of cigarettes per day. States he was smoking meth recently to help with the pain from his scrotal infection, but otherwise denies a history of drug use. Denies any known chronic infectious diseases. Denies recent travel. Denies pet or animal exposures. - ROS Review of Systems: All systems reviewed and no additional remarkable complaints except as stated. - Results CBC & Chem 7: 11/17/18 04:15 11/17/18 04:15 - Exam Vitals: Temp Pulse Resp BP Pulse Ox 97.9 F 80 16 130/76 98 11/17/18 11:07 11/17/18 11:07 11/17/18 11:07 11/17/18 11:07 11/17/18 11:07 Exam: Head: Atraumatic, normal inspection, normocephalic. Eye: EOMI, PERRLA, no scleral icterus noted. ENT: Mucous membranes moist. No odontogenic infection noted. Neck: Normal inspection, no meningismus. Respiratory: Clear to auscultation. No rales, respiratory distress, rhonchi, or wheezes noted. Cardiovascular: Regular rate and rhythm, S1 and S2 audible. No murmurs, rubs, or gallops. GI: Soft, nondistended, normal bowel sounds. : Scrotal erythema, edema, and tenderness noted. Extremities:No joint swelling, pedal edema, or tenderness noted. Back: Normal inspection. No vertebral tenderness noted. Neurological: Alert, oriented 3, no focal deficits. Psychiatric: normal affect, normal mood. Skin: Dry, intact, warm. Normal color. No rashes. No Known Home Drugs 11/15/18 [History] Allergy/AdvReac Type Severity Reaction Status Date / Time hydrocodone Allergy Hives Verified 10/05/15 17:07 - Assessment and Plan (1) Sepsis Current Visit: Yes Status: Acute The patient had 3 sepsis criteria. Likely secondary to scrotal cellulitis. Improved. Continues to have low-grade fevers and intermittent tachycardia. White blood cell count is trending down. Blood cultures drawn 11/15/18 are no growth to date 2 sets. Qualifiers: Sepsis type: sepsis due to unspecified organism Sepsis acute organ dysfunction status: without acute organ dysfunction Qualified Code(s): A41.9 - Sepsis, unspecified organism SNOMED Code(s): 61505214 (2) Cellulitis of scrotum Current Visit: Yes Status: Acute Causative organism: Unclear. Etiology: Unclear. The patient denies any known trauma or open lesions to the scrotum. Urine gonococcal and chlamydial testing were negative. Urine culture is negative. CT of the abdomen and pelvis shows findings consistent with cellulitis of the scrotum, but no abscess or Destiney's gangrene. Scrotal UTS shows epididymal orchitis. Urology consulted. No surgical intervention at this point. Currently on Vanc, Cipro, and Flagyl. SNOMED Code(s): 04830765 (3) Hypertension Current Visit: Yes Status: Chronic Qualifiers: Hypertension type: unspecified Qualified Code(s): I10 - Essential (primary) hypertension SNOMED Code(s): 84441832 (4) Substance abuse Current Visit: Yes Status: Acute UDS positive for amphetamines and THC. SNOMED Code(s): 05813581 - Recommendations Recommendations: Check HIV and Hepatitis B/C serologies. Await blood cultures to finalize. Continue Vancomycin IV. Pharmacy to dose. Goal trough ~15. Start Rocephin 2 grams IV daily. Discontinue Cipro and Flagyl. Duration of treatment depends on the clinical picture. Monitor renal function and for drug toxicity and dose-adjust antibiotics. Past Med Surg Social Fam HX - Past Medical History Attestation: Yes The following information was validated with the patient. Medical history: no medical history Psychiatric history: no psych history - Past Surgical History Additional surgical history: RT KNEE SURGERY -ARTHROSCOPIC TO REPAIR CARTLIGE - Social History Smoking Status: Current every day smoker Packs per day: 1 Smokeless Tobacco Status: No Alcohol use: none Drug use: methamphetamine Occupational status: employed Current living situation: Home, With Family Activity Level: Independent ambulation Recent Out of Country Travel Within the Last 8 Weeks: No Exposure or Possible Exposure to Illness During Travel: No - Family History Mother Adopted: No Hx Family Cardiac Disorders: Yes (heart attack, grandpa) Hx Family Respiratory Disorders: No Hx Family Cancer: No Hx Family GI Disorders: No Hx Family Genitourinary Disorders: No Hx Family Endocrine Disorder: Yes Hx Family Musculoskeletal Disorders: No Hx Family Neuromuscular Disorders: No Hx Family Neurologic Disorders: No Hx Family HEENT Disorders: No Hx Family Autoimmune Disorders: No Hx Family Reproductive Disorders: No Hx Family Psychosocial Disorders: No Hx Family Medical Disorders: No Consult Discharge Plan - Plan Referrals: Tracy Saavedra CNP [Advanced Practice Nurse] - 11/24/18 11:15 am - Attending Attestation I have personally performed a face to face evaluation on this patient. I have reviewed and agree with the care plan. History and Exam by me shows: This is an addendum to original report dictated by Stephy De iDos CNP. Please refer to Stephy's note for full detail. Agree with above history of present illness, review of system and physical exam findings. Assessment and plan: IV drug use Scrotal cellulitisscrotal ultrasound with no evidence of testicular torsion. Increased vascularity of the testes and epididymis suggesting epididymal orchitis. Appreciate urology's input. Leukocytosis. WBC 42,000 Recommendations: At this point this looks like a superficial infection. Chlamydia and gonorrhea were negative. Check HIV Urinalysis and urine culture negative Appreciate urology input Continue vancomycin Start Rocephin Duration of treatment depends on the clinical picture
--- NOTE | 2018-11-17 15:23 | Internal Med Progress Note ---
Hospitalist Progress Note - Encounter Date of Encounter: 11/17/18 Time of Encounter: 09:25 - Subjective Interval History: Mr Venegas is complaining of pain at his peripheral IV sites and swelling on his right upper extremity. He reports intermittent fevers and chills. GEN: Admits to fever, chills or malaise HEENT: Denies headache blurriness, or dysphagia RESP: Denies SOB or cough CV: Denies chest pain or palpitations GI: Denies Nausea, vomiting, diarrhea or constipation Reviewed current in hospital medications with modifications see orders Reviewed Routine labs - Exam Vitals: Temp Pulse Resp BP Pulse Ox 97.9 F 80 16 130/76 98 11/17/18 11:07 11/17/18 11:07 11/17/18 11:07 11/17/18 11:07 11/17/18 11:07 Exam: GEN: Mildly distressed male, A&O x 3, appears somnolent his at his bedside SKIN: [place] warm acyanotic not jaundice, multiple healed scars/lesions noted on bilateral upper and lower extremity HEART: RRR tachycardic, no murmurs LUNGS: CTA no wheeze or crackles, overall non labored ABDOMEN; Soft, non tender or distended, BS x 4 normactive EXT: No LE edema, Pedal pulses 1+, radial pulses 2+ PSYCH: Mood and affect is appropriate - Assessment and Plan (1) Sepsis Current Visit: Yes Status: Acute Assessment and Plan: Improving leukocytosis trended down antibiotics treatment plan onwards per ID, discussed with patient given that he has either infiltrated his IV and in need of a PICC for likely outpatient IV antibiotics that he has to be discharged to an ECF given his polysubstance drug use history. Patient is septic with the likely source being the scrotum cellulitis and abscess, leukocytosis trended up from 35.3-41.8 while on vancomycin and Zosyn. Due to concerns of possible testicular penetration and amicable agent was switched to ciprofloxacin and add metronidazole for tissue penetration. STDs is how the differential of the patient and his was at the bedside denies any prior history. Patient seems to attribute these to manipulation of his abscess tooth he does appear to have poor dentition due to concern for hematogenous seeding will obtain 2 D echo given his history of substance abuse (2) Cellulitis of scrotum Current Visit: Yes Status: Acute Assessment and Plan: As per stated above GC Chlamydia not dictated he denies any history of STDs. Physical exam no penile discharge, significant scrotal edema with a hard mass palpated, ultrasound of the testicle was unrevealing. As aforementioned switched antibiotics to Cipro and Flagyl and vancomycin. He was evaluated by urology we appreciate the input (3) Substance abuse Current Visit: Yes Status: Acute Assessment and Plan: Patient denies any recent use, urine tox screen was positive for amphentermine and marijuana, as aforementioned patient would need ECF placement for outpatient IV antibiotics if indicated (4) Hypertension Current Visit: Yes Status: Chronic Assessment and Plan: Patient is septic as such will watch cautiously. He is not on any home hypertensive (5) Dental abscess Current Visit: Yes Status: Acute Assessment and Plan: Oral exam revealed multiple dental abscesses, hematogenous seeding is of concern DVT Prophylaxis: Do not anticipate patient to be ambulatory heparin subcutaneous - Time Spent with Patient Total time spent is greater than 50% in coordination of care (as documented) at patient's floor/unit and/or counseling patient: Internal Medicine: Result - Labs CBC & Chem 7: 11/17/18 04:15 11/17/18 04:15 Labs: Short CBC 11/17/18 Range/Units 04:15 WBC 30.7 H* (4.3-11.1) K/mcL Hgb 10.3 L (12.9-16.9) g/dL Hct 31.5 L (37.5-50.1) % Plt Count 266 (140-400) K/mcL Neutrophils # 26.0 H (1.6-8.9) K/mcL BMP 11/17/18 04:15 Sodium 134 L Potassium 3.3 L Chloride 103 Carbon Dioxide 26 BUN 10 Creatinine 0.65 L Glucose 121 H Calcium 8.1 L - Impressions Impressions Echocardiogram 11/16/18 11:08 Impressions: LVEF 60-65%. Normal left ventricular diastolic function. Normal right ventricular structure and function. Aortic valve leaflets are not optimally visualized. Leaflets give the appearance of a bicuspid aortic valve. Aortic regurgitation, not well evaluated. No pulmonary hypertension. Proximal ascending thoracic aorta not well visualized. No visualized vegetations. Left Ventricular Wall Motion: Rest Echo Findings All wall segments showed normal motion. Findings: Study Quality * Technically adequate exam. ECG Findings * Normal sinus rhythm. Left Ventricle * LVEF 60-65%. * Normal LV chamber size, wall thickness and function. * Normal left ventricular diastolic function. Right Ventricle * Normal right ventricular structure and function. Left Atrium * Normal left atrial size. Right Atrium * Normal right atrial size. Aortic Valve * Aortic vavle leaflets are not optimally visualized. * Leaflet give the appearance of a bicuspid aortic valve. * No aortic stenosis. * Aortic regurgitation, not well evaluated. Mitral Valve * No mitral regurgitation. * Normal mitral valve structure. * No mitral stenosis. Tricuspid Valve * Normal tricuspid valve structure. * Trace tricuspid regurgitation. * Estimated RA pressure is 8 mmHg. Pulmonic Valve * Pulmonic valve is not well visualized. * No pulmonic stenosis. * No pulmonic regurgitation. Pulmonary Artery * Pulmonary artery not well visualized. Aorta * Normally sized aortic root for BSA. Pericardium * There is no pericardial effusion present. Interatrial Septum * No evidence of PFO by color Doppler. IVC * The IVC is not dilated. * < 50% respiratory change. Consult Discharge Plan - Plan Referrals: Tracy Saavedra CNP [Advanced Practice Nurse] - 11/24/18 11:15 am (1) Sepsis Qualifiers: Sepsis type: sepsis due to unspecified organism Sepsis acute organ dysf unction status: without acute organ dysfunction Qualified Code(s): A41.9 - Sepsis, unspecified organism (4) Hypertension Qualifiers: Hypertension type: unspecified Qualified Code(s): I10 - Essential (primary) hypertension
[2018-11-17] MEDS: cefTRIAXone 2,000 MG in Water for inj. (sterile) 20 ML IVP SCH (15:34)
[2018-11-17] MEDS: *HR* OxyCODONE Immed Rel 5 MG TABLET PO PRN (15:35)
[2018-11-17 18:13] LABS: Hepatitis B Surface Antibody < 3.10 mIU/mL
[2018-11-17 18:24] LABS: Hepatitis B Surface Antigen Nonreactive (Nonreactive)
[2018-11-17 18:52] LABS: Hepatitis C Virus Antibody Nonreactive (Nonreactive)
[2018-11-17 18:53] LABS: HIV-1&2 Antibody & p24 Ag Nonreactive (Nonreactive)
[2018-11-18] MEDS: *HR* Heparin 5,000 UNIT/ML VIAL SQ SCH ×3 (05:31→21:53)
[2018-11-18 05:58] LABS: Basophils # 0.1 K/mcL (0.0-0.2); Basophils % 0.4 %; Eosinophils # 0.3 K/mcL (0.0-0.6); Eosinophils % 2.4 %; Hematocrit 33.5 % (37.5-50.1); Immature Granulocytes % 1.2 % (0-4); Mean Corpuscular HGB Conc 32.8 g/dL (31.6-35.5); Mean Corpuscular Hemoglobin 28.7 pg (28.0-33.3); Mean Corpuscular Volume 87.5 fL (83.0-100.0); Mean Platelet Volume 9.7 fL (9.4-12.4); Monocytes # 1.3 K/mcL (0.0-1.3); Monocytes % 9.9 %; Neutrophils # 9.3 K/mcL (1.6-8.9); Platelet Count 341 K/mcL (140-400); Red Blood Count 3.83 M/mcL (4.19-5.50); Red Cell Distribution Width 15.9 % (11.5-14.5); Segmented Neutrophils % 71.1 %
[2018-11-18 05:59] LABS: White Blood Count 13.1 K/mcL (4.3-11.1)
[2018-11-18 06:13] LABS: BUN/Creatinine Ratio 12 (6-26); Blood Urea Nitrogen 8 mg/dL (6-20); Calcium 8.5 mg/dL (8.6-10.3); Carbon Dioxide 28 mEq/L (23-29); Chloride 103 mEq/L (98-107); Glucose 104 mg/dL (70-105); Magnesium 1.7 mg/dL (1.6-2.6); Osmolality,Calculated 279 (280-300); Potassium 4.2 mEq/L (3.5-5.1); Sodium 135 mEq/L (136-145); eGFR For African Americans > 60 (> 60); eGFR For Non-African Americans > 60 (> 60)
[2018-11-18] MEDS: cefTRIAXone 2,000 MG in Water for inj. (sterile) 20 ML IVP SCH (10:30)
[2018-11-18] MEDS: Lactobacillus 1 EACH CAP.SPRINK PO SCH ×2 (10:30→21:52)
[2018-11-18] MEDS: *HR* OxyCODONE Immed Rel 5 MG TABLET PO PRN (10:40)
[2018-11-18] MEDS: Nicotine 21 MG PATCH.TD24 TD SCH (11:22)
--- NOTE | 2018-11-18 16:58 | Internal Med Progress Note ---
Hospitalist Progress Note - Encounter Date of Encounter: 11/18/18 Time of Encounter: 13:00 - Subjective Interval History: Mr Venegas was feeling much better work up so far has been unyielding. GEN: Denies fever, chills or malaise HEENT: Denies headache blurriness, or dysphagia RESP: Denies SOB or cough CV: Denies chest pain or palpitations GI: Denies Nausea, vomiting, diarrhea or constipation Reviewed current in hospital medications with modifications see orders Reviewed Routine labs - Exam Vitals: Temp Pulse Resp BP Pulse Ox 98.3 F 81 16 144/86 96 11/18/18 14:00 11/18/18 14:00 11/18/18 14:00 11/18/18 14:00 11/18/18 14:00 Exam: GEN:NAD A&O x 3, appears somnolent his at his bedside SKIN: [place] warm acyanotic not jaundice, multiple healed scars/lesions noted on bilateral upper and lower extremity HEART: RRR , no murmurs LUNGS: CTA no wheeze or crackles, overall non labored ABDOMEN; Soft, non tender or distended, BS x 4 normactive EXT: No LE edema, Pedal pulses 1+, radial pulses 2+ PSYCH: Mood and affect is appropriate - Assessment and Plan (1) Sepsis Current Visit: Yes Status: Acute Assessment and Plan: Improving leukocytosis continue to trend down 13.1 today, urine culture was negative blood culture still pending. antibiotics treatment plan onwards per ID, appreciate ID and Urology input, discussed with patient given that he has either infiltrated his IV and in need of a PICC for likely outpatient IV antibiotics that he has to be discharged to an ECF given his polysubstance drug use history. Upper extremity DVT was negative Patient is septic with the likely source being the scrotum cellulitis and abscess, leukocytosis trended up from 35.3-41.8 while on vancomycin and Zosyn. Due to concerns of possible testicular penetration and amicable agent was switched to ciprofloxacin and add metronidazole for tissue penetration. STDs is how the differential of the patient and his was at the bedside denies any prior history. Patient seems to attribute these to manipulation of his abscess tooth he does appear to have poor dentition due to concern for hematogenous seeding will obtain 2 D echo given his history of substance abuse (2) Cellulitis of scrotum Current Visit: Yes Status: Acute Assessment and Plan: As per stated above GC Chlamydia not dictated he denies any history of STDs. Physical exam no penile discharge, significant scrotal edema with a hard mass palpated, ultrasound of the testicle was unrevealing. As aforementioned (3) Substance abuse Current Visit: Yes Status: Acute Assessment and Plan: Patient initially denies any recent use, but yesterday admitted to amphetamine use and stated his postive screen for marijuana was from being around his friends that smoke marijuana constantly, of note urine tox screen was positive for amphentermine and marijuana, as aforementioned patient would need ECF placement for outpatient IV antibiotics if indicated (4) Hypertension Current Visit: Yes Status: Chronic Assessment and Plan: Patient is septic but improving, BP is elevated. He is not on any home hypertensive will start amlodipine and not an ACEI since he is still on vancomycin (5) Dental abscess Current Visit: Yes Status: Acute Assessment and Plan: Oral exam revealed multiple dental abscesses, hematogenous seeding is of concern however blood culture negative so far 2 D echo negative DVT Prophylaxis: heparin subcutaneous - Time Spent with Patient Total time spent is greater than 50% in coordination of care (as documented) at patient's floor/unit and/or counseling patient: Internal Medicine: Result - Labs CBC & Chem 7: 11/18/18 05:30 11/18/18 05:30 Labs: Short CBC 11/18/18 Range/Units 05:30 WBC 13.1 H D (4.3-11.1) K/mcL Hgb 11.0 L (12.9-16.9) g/dL Hct 33.5 L (37.5-50.1) % Plt Count 341 (140-400) K/mcL Neutrophils # 9.3 H (1.6-8.9) K/mcL BMP 11/18/18 05:30 Sodium 135 L Potassium 4.2 Chloride 103 Carbon Dioxide 28 BUN 8 Creatinine 0.67 L Glucose 104 Calcium 8.5 L Consult Discharge Plan - Plan Referrals: Tracy Saavedra, [facility] [Advanced Practice Nurse] - 11/24/18 11:15 am (1) Sepsis Qualifiers: Sepsis type: sepsis due to unspecified organism Sepsis acute organ dysfunction status: without acute organ dysfunction Qualified Code(s): A41.9 - Sepsis, unspecified organism (4) Hypertension Qualifiers: Hypertension type: unspecified Qualified Code(s): I10 - Essential (primary) hypertension
--- NOTE | 2018-11-18 17:03 | Urology Progress Note ---
Date of Encounter: 11/18/18 Time of Encounter: 17:02 - Assessment and Plan (1) Epididymo-orchitis without abscess Current Visit: Yes Status: Acute Assessment and plan: Florid left epididymal orchitis is resolving left epididymal orchitis on IV antibiotic therapy. Subjectively, the patient feels much improved. Expect full resolution on 1014 days of antibiotic therapy. Plan: Home on culture specific antibiotics as per infectious disease. Progress Note Subjective: feels better Objective Initial Vital Signs Pulse Resp BP Pulse Ox 100 16 142/93 100 11/15/18 19:17 11/15/18 19:17 11/15/18 19:17 11/15/18 19:17 - General physical appearance Present: no distress - Respiratory Present: normal respiratory effort - Musculoskeletal Present: normal gait, normal posture - Psychiatric Present: oriented to time, oriented to person, oriented to place - Labs 11/18/18 05:30 11/18/18 05:30 Diabetes panel 11/18/18 Range/Units 05:30 Sodium 135 L (136-145) mEq/L Potassium 4.2 (3.5-5.1) mEq/L Chloride 103 (98-107) mEq/L Carbon Dioxide 28 (23-29) mEq/L BUN 8 (6-20) mg/dL Creatinine 0.67 L (0.70-1.30) mg/dL Glucose 104 (70-105) mg/dL Calcium 8.5 L (8.6-10.3) mg/dL Calcium panel 11/18/18 Range/Units 05:30 Calcium 8.5 L (8.6-10.3) mg/dL Pituitary panel 11/18/18 Range/Units 05:30 Sodium 135 L (136-145) mEq/L Potassium 4.2 (3.5-5.1) mEq/L Chloride 103 (98-107) mEq/L Carbon Dioxide 28 (23-29) mEq/L BUN 8 (6-20) mg/dL Creatinine 0.67 L (0.70-1.30) mg/dL Glucose 104 (70-105) mg/dL Calcium 8.5 L (8.6-10.3) mg/dL Adrenal panel 11/18/18 Range/Units 05:30 Sodium 135 L (136-145) mEq/L Potassium 4.2 (3.5-5.1) mEq/L Chloride 103 (98-107) mEq/L Carbon Dioxide 28 (23-29) mEq/L BUN 8 (6-20) mg/dL Creatinine 0.67 L (0.70-1.30) mg/dL Glucose 104 (70-105) mg/dL Calcium 8.5 L (8.6-10.3) mg/dL Consult Discharge Plan - Plan Referrals: Tracy Saavedra CNP [Advanced Practice Nurse] - 11/24/18 11:15 am
[2018-11-19 00:40] LABS: Amphetamine Screen,Urine Positive ng/mL (Cutoff=1000); Barbiturate Screen,Urine Negative ng/mL (Cutoff=200); Benzodiazepines Screen,Urine Negative ng/mL (Cutoff=200); Cannabinoid Screen,Urine Negative ng/mL (Cutoff = 50); Cocaine Screen,Urine Negative ng/mL (Cutoff= 300); Opiate Screen,Urine Negative ng/mL (Cutoff=300); Phencyclidine Screen,Urine Negative ng/mL (Cutoff=25)
[2018-11-19] MEDS ORDERED: hydrALAZINE 25 MG TABLET PO ONE (02:54)
[2018-11-19 03:18] LABS: Basophils # 0.1 K/mcL (0.0-0.2); Basophils % 0.5 %; Eosinophils # 0.3 K/mcL (0.0-0.6); Eosinophils % 2.3 %; Hemoglobin 11.9 g/dL (12.9-16.9); Immature Granulocytes % 1.8 % (0-4); Lymphocytes # 1.7 K/mcL (0.6-4.6); Lymphocytes % 14.8 %; Mean Corpuscular HGB Conc 33.1 g/dL (31.6-35.5); Mean Corpuscular Hemoglobin 28.9 pg (28.0-33.3); Mean Corpuscular Volume 87.4 fL (83.0-100.0); Monocytes # 1.3 K/mcL (0.0-1.3); Monocytes % 11.3 %; Neutrophils # 7.9 K/mcL (1.6-8.9); Platelet Count 399 K/mcL (140-400); Red Blood Count 4.12 M/mcL (4.19-5.50); Red Cell Distribution Width 15.7 % (11.5-14.5); Segmented Neutrophils % 69.3 %; White Blood Count 11.4 K/mcL (4.3-11.1)
[2018-11-19 03:26] LABS: BUN/Creatinine Ratio 11 (6-26); Blood Urea Nitrogen 7 mg/dL (6-20); Calcium 9.3 mg/dL (8.6-10.3); Carbon Dioxide 29 mEq/L (23-29); Chloride 99 mEq/L (98-107); Glucose 105 mg/dL (70-105); Magnesium 1.9 mg/dL (1.6-2.6); Osmolality,Calculated 278 (280-300); Potassium 3.9 mEq/L (3.5-5.1); Sodium 135 mEq/L (136-145); eGFR For African Americans > 60 (> 60); eGFR For Non-African Americans > 60 (> 60)
[2018-11-19] MEDS: *HR* Heparin 5,000 UNIT/ML VIAL SQ SCH ×3 (05:24→22:48)
--- NOTE | 2018-11-19 07:52 | Event Note ---
Date of Encounter: 11/18/18 Time of Encounter: 20:52 Alerted by pts. nurse DESTINI Chan that the patient had been admitted for scrotum inflammation and was due to be discharged to ECF for IV antibiotic treatment. Patient wished to sign out AMA. Nurse reported patient's mother visited him today which caused the patient to become anxious. Pt. has hx of IVDU. Patient has been hypertensive and when nurse went to check BP patient refused stating he wanted to sign out AMA because he was "over it" and would lose his job if he stayed. Went to see patient who was laying in bed fully dressed. I reviewed the patient's chart and notes and plan was for patient to DC to ECF for IV antibiotic treatment. Patient stated he was told he would be discharged on oral antibiotics. I informed the patient there was no notation of discharge with PO antibiotics anywhere in the chart. Patient stated he was not going to a retirement for IV antibiotics. I assured the patient I would leave a note for the day Hospitalist to review and clarify the plan for the patient. Patient continued to remain hypertensive overnight with elevated BPs of 195/102, 189/111, 223/141, 196/117. I ordered several doses of IVP hydralazine throughout the evening which brought the patient's BP down somewhat. Last dose was changed to PO as the pt. stated the IVP hydralazine made him feel "funny". Pt. needs clarification of discharge plan today as to whether he is leaving on IV or PO antibiotics for continued treatment. Nurse instructed to continue monitoring the pt. very closely and alert me immediately of any adverse changes.
[2018-11-19] MEDS ORDERED: amLODIPine 5 MG TABLET PO SCH (09:00)
[2018-11-19] MEDS: cefTRIAXone 2,000 MG in Water for inj. (sterile) 20 ML IVP SCH (09:06)
[2018-11-19] MEDS: Lactobacillus 1 EACH CAP.SPRINK PO SCH ×2 (09:07→21:38)
[2018-11-19] MEDS: Nicotine 21 MG PATCH.TD24 TD SCH (09:08)
--- NOTE | 2018-11-19 15:57 | Internal Med Progress Note ---
Hospitalist Progress Note - Encounter Date of Encounter: 11/19/18 Time of Encounter: 13:45 - Subjective Interval History: Mr Venegas apparently was threatening to leave AMA after he was visited by his mother. Repeat urine toxicology is positive for amphetamine negative for marijuana. His urine was positive for phentermine and marijuana on admission GEN: Denies fever, chills or malaise HEENT: Denies headache blurriness, or dysphagia RESP: Denies SOB or cough CV: Denies chest pain or palpitations GI: Denies Nausea, vomiting, diarrhea or constipation Reviewed current in hospital medications with modifications see orders Reviewed Routine labs - Exam Vitals: Temp Pulse Resp BP Pulse Ox 98 F 90 16 168/98 99 11/19/18 13:00 11/19/18 13:00 11/19/18 13:00 11/19/18 13:00 11/19/18 13:00 Exam: GEN:NAD A&O x 3, at his bedside SKIN: [place] warm acyanotic not jaundice, multiple healed scars/lesions noted on bilateral upper and lower extremity HEART: RRR , no murmurs LUNGS: CTA no wheeze or crackles, overall non labored ABDOMEN; Soft, non tender or distended, BS x 4 normactive EXT: No LE edema, Pedal pulses 1+, radial pulses 2+ PSYCH: Mood and affect is appropriate - Assessment and Plan (1) Hypertension Current Visit: Yes Status: Chronic Assessment and Plan: Patient is septic but improving, BP is elevated. He is not on any home hypertensive will start amlodipine and not an ACEI since he is still on vancomycin. Blood pressure 11/16 and 11/17 systolic 128-154/ diastolic 62-113, BP shoot up to 190/129 and remained elevated after 18.50 11/18, suspect another methamphenamine use while hospitalized, repeat urine toxicology is now positive for amphetermine only. Educate patient he is putting himself at risk for stroke. goal BP for next 24 hours no less than systolic 160. increase amlodipine to 10 mg tomorrow will dc hydralazine add toprol xl (2) Sepsis Current Visit: Yes Status: Acute Assessment and Plan: he was trying to leave AMA, after visit with his mother yesterday. Please make sure you discontinue his IV if he does leave AMA tonight Improving leukocytosis continue to trend down 11.4 today, urine culture was negative blood culture still pending. antibiotics treatment plan onwards per ID, appreciate ID and Urology input, discussed with patient given that he has either infiltrated his IV and in need of a PICC for likely outpatient IV antibiotics that he has to be discharged to an ECF given his polysubstance drug use history. Upper extremity DVT was negative Patient is septic with the likely source being the scrotum cellulitis and abscess, leukocytosis trended up from 35.3-41.8 while on vancomycin and Zosyn. Due to concerns of possible testicular penetration and amicable agent was switched to ciprofloxacin and add metronidazole for tissue penetration. STDs is how the differential of the patient and his was at the bedside denies any prior history. Patient seems to attribute these to manipulation of his abscess tooth he does appear to have poor dentition due to concern for hematogenous seeding will obtain 2 D echo given his history of substance abuse (3) Cellulitis of scrotum Current Visit: Yes Status: Acute Assessment and Plan: As per stated above GC Chlamydia not dictated he denies any history of STDs. Physical exam no penile discharge, significant scrotal edema with a hard mass palpated, ultrasound of the testicle was unrevealing. As aforementioned (4) Substance abuse Current Visit: Yes Status: Acute Assessment and Plan: Suspect patient is using phentermine during his hospitalization, repeat urine toxicology is positive for phentermine negative for marijuana he was positive for both an admission Patient initially denies any recent use, but yesterday admitted to amphetamine use and stated his postive screen for marijuana was from being around his friends that smoke marijuana constantly, of note urine tox screen was positive for amphentermine and marijuana, as aforementioned patient would need ECF placement for outpatient IV antibiotics if indicated (5) Dental abscess Current Visit: Yes Status: Acute Assessment and Plan: Oral exam revealed multiple dental abscesses, hematogenous seeding is of concern however blood culture negative so far 2 D echo negative - Time Spent with Patient Total time spent is greater than 50% in coordination of care (as documented) at patient's floor/unit and/or counseling patient: Internal Medicine: Result - Labs CBC & Chem 7: 11/19/18 02:55 11/19/18 02:55 Labs: Short CBC 11/19/18 Range/Units 02:55 WBC 11.4 H (4.3-11.1) K/mcL Hgb 11.9 L (12.9-16.9) g/dL Hct 36.0 L (37.5-50.1) % Plt Count 399 (140-400) K/mcL Neutrophils # 7.9 (1.6-8.9) K/mcL [facility] 11/19/18 02:55 Sodium 135 L Potassium 3.9 Chloride 99 Carbon Dioxide 29 BUN 7 Creatinine 0.64 L Glucose 105 Calcium 9.3 Consult Discharge Plan - Plan Referrals: Tracy Saavedra CNP [Advanced Practice Nurse] - 11/24/18 11:15 am (1) Hypertension Qualifiers: Hypertension type: unspecified Qualified Code(s): I10 - Essential (primary) hypertension (2) Sepsis Qualifiers: Sepsis type: sepsis due to unspecified organism Sepsis acute organ dysfunction status: without acute organ dysfunction Qualified Code(s): A41.9 - Sepsis, unspecified organism
[2018-11-20] MEDS: *HR* OxyCODONE Immed Rel 5 MG TABLET PO PRN (00:15)
[2018-11-20 05:32] LABS: Basophils # 0.1 K/mcL (0.0-0.2); Basophils % 0.4 %; Eosinophils # 0.4 K/mcL (0.0-0.6); Hematocrit 39.6 % (37.5-50.1); Immature Granulocytes % 2.9 % (0-4); Lymphocytes # 1.9 K/mcL (0.6-4.6); Lymphocytes % 16.5 %; Mean Corpuscular HGB Conc 32.8 g/dL (31.6-35.5); Mean Corpuscular Hemoglobin 29.1 pg (28.0-33.3); Mean Corpuscular Volume 88.8 fL (83.0-100.0); Monocytes # 1.4 K/mcL (0.0-1.3); Monocytes % 12.3 %; Neutrophils # 7.6 K/mcL (1.6-8.9); Platelet Count 435 K/mcL (140-400); Red Blood Count 4.46 M/mcL (4.19-5.50); Red Cell Distribution Width 15.9 % (11.5-14.5); Segmented Neutrophils % 64.9 %; White Blood Count 11.7 K/mcL (4.3-11.1)
[2018-11-20] MEDS: *HR* Heparin 5,000 UNIT/ML VIAL SQ SCH ×2 (05:39→13:50)
[2018-11-20 05:56] LABS: BUN/Creatinine Ratio 20 (6-26); Blood Urea Nitrogen 16 mg/dL (6-20); Calcium 9.4 mg/dL (8.6-10.3); Carbon Dioxide 28 mEq/L (23-29); Chloride 99 mEq/L (98-107); Glucose 96 mg/dL (70-105); Magnesium 1.8 mg/dL (1.6-2.6); Osmolality,Calculated 287 (280-300); Potassium 4.7 mEq/L (3.5-5.1); Sodium 138 mEq/L (136-145); eGFR For African Americans > 60 (> 60); eGFR For Non-African Americans > 60 (> 60)
[2018-11-20 06:08] LABS: Platelet Estimate Normal (Normal)
[2018-11-20] MEDS ORDERED: amLODIPine 5 MG TABLET PO SCH (09:00)
[2018-11-20] MEDS ORDERED: Metoprolol XL (24 HR) Succ 25 MG TAB.ER.24H PO SCH (09:00)
--- NOTE | 2018-11-20 09:15 | Urology Progress Note ---
<Suha Mazariegos N - Last Filed: 11/20/18 09:12> Date of Encounter: 11/20/18 Time of Encounter: 08:10 - Assessment and Plan (1) Epididymo-orchitis without abscess Status: Acute Assessment and plan: Patient is a 38-year-old male who presents with a history of left-sided epididymoorchitis without abscess. Vital signs are stable and afebrile. White blood cell count is much improved to 11.7 from 41 on admission. Clinically, patient appears much improved. Patient is currently receiving IV Rocephin and vancomycin. At this time, urology will sign off with the recommendation of an additional 10-14 days of oral antibiotics per the primary team. Patient may follow up as an outpatient with Dr. Guzman within 2 weeks of discharge. Progress Note Narrative: Patient seen and examined sitting upright in bed in apparent distress. Patient reports he is voiding well without difficulty. Patient states scrotal swelling and pain is improved. Patient denies any fever or chills. Objective Initial Vital Signs Pulse Resp BP Pulse Ox 100 16 142/93 100 11/15/18 19:17 11/15/18 19:17 11/15/18 19:17 11/15/18 19:17 - General physical appearance Present: no distress, no pain - Respiratory Present: normal expansion, normal respiratory effort - Abdomen Present: soft, non tender. Absent: distended - Genitourinary Present: normal penis with no external lesions scrotal mass/hydrocele: bilateral (Diffuse scrotal edema and erythema; much improved from previous examination) - Integumentary Present: no rash, no abnormal pigmentation - Musculoskeletal Present: normal posture - Psychiatric Present: oriented to time, oriented to person, oriented to place, speech is normal, memory intact - Labs 11/20/18 05:04 11/20/18 05:04 Diabetes panel 11/20/18 Range/Units 05:04 Sodium 138 (136-145) mEq/L Potassium 4.7 (3.5-5.1) mEq/L Chloride 99 (98-107) mEq/L Carbon Dioxide 28 (23-29) mEq/L BUN 16 (6-20) mg/dL Creatinine 0.82 (0.70-1.30) mg/dL Glucose 96 (70-105) mg/dL Calcium 9.4 (8.6-10.3) mg/dL Calcium panel 11/20/18 Range/Units 05:04 Calcium 9.4 (8.6-10.3) mg/dL Pituitary panel 11/20/18 Range/Units 05:04 Sodium 138 (136-145) mEq/L Potassium 4.7 (3.5-5.1) mEq/L Chloride 99 (98-107) mEq/L Carbon Dioxide 28 (23-29) mEq/L BUN 16 (6-20) mg/dL Creatinine 0.82 (0.70-1.30) mg/dL Glucose 96 (70-105) mg/dL Calcium 9.4 (8.6-10.3) mg/dL Adrenal panel 11/20/18 Range/Units 05:04 Sodium 138 (136-145) mEq/L Potassium 4.7 (3.5-5.1) mEq/L Chloride 99 (98-107) mEq/L Carbon Dioxide 28 (23-29) mEq/L BUN 16 (6-20) mg/dL Creatinine 0.82 (0.70-1.30) mg/dL Glucose 96 (70-105) mg/dL Calcium 9.4 (8.6-10.3) mg/dL Consult Discharge Plan - Plan Instructions: Cellulitis (DC), Sepsis (DC) Additional Instructions: Please you need a scrotal support this can be purchased at a durable medical supplies Store, or local pharmacy Referrals: Tracy Saavedra CNP [Advanced Practice Nurse] - 11/24/18 11:15 am Roberto Mi MD [Partnered Physician] - (Web request entered. Office will call with date and time of appointment. ) Prescriptions: Sulfamethoxazole/Trimeth DS [Bactrim DS] 1 each PO BID #28 tablet Lactobacillus [Culturelle] 1 each PO BID #60 cap.sprink cephALEXin [Keflex] 500 mg PO BID #28 capsule Nicotine Patch [Nicoderm] 21 mg TD DAILY #30 patch.td24 amLODIPine [Norvasc] 10 mg PO DAILY #30 tablet Metoprolol XL (24 HR) Succ [Toprol Xl] 25 mg PO DAILY #30 tab.er.24h <Torres Ivan - Last Filed: 11/20/18 19:54> Date of Encounter: 11/20/18 Progress Note Narrative: Patient was seen and examined independently. Patient's left testicle consistent with orchitis. I reviewed the plan as written by Suha Mazariegos. Patient can keep scheduled follow-up with Dr. Guzman in next 1-3 weeks. Please call with any questions Objective Initial Vital Signs Pulse Resp BP Pulse Ox 100 16 142/93 100 11/15/18 19:17 11/15/18 19:17 11/15/18 19:17 11/15/18 19:17 - Labs 11/20/18 05:04 11/20/18 05:04 Diabetes panel 11/20/18 Range/Units 05:04 Sodium 138 (136-145) mEq/L Potassium 4.7 (3.5-5.1) mEq/L Chloride 99 (98-107) mEq/L Carbon Dioxide 28 (23-29) mEq/L BUN 16 (6-20) mg/dL Creatinine 0.82 (0.70-1.30) mg/dL Glucose 96 (70-105) mg/dL Calcium 9.4 (8.6-10.3) mg/dL Calcium panel 11/20/18 Range/Units 05:04 Calcium 9.4 (8.6-10.3) mg/dL Pituitary panel 11/20/18 Range/Units 05:04 Sodium 138 (136-145) mEq/L Potassium 4.7 (3.5-5.1) mEq/L Chloride 99 (98-107) mEq/L Carbon Dioxide 28 (23-29) mEq/L BUN 16 (6-20) mg/dL Creatinine 0.82 (0.70-1.30) mg/dL Glucose 96 (70-105) mg/dL Calcium 9.4 (8.6-10.3) mg/dL Adrenal panel 11/20/18 Range/Units 05:04 Sodium 138 (136-145) mEq/L Potassium 4.7 (3.5-5.1) mEq/L Chloride 99 (98-107) mEq/L Carbon Dioxide 28 (23-29) mEq/L BUN 16 (6-20) mg/dL Creatinine 0.82 (0.70-1.30) mg/dL Glucose 96 (70-105) mg/dL Calcium 9.4 (8.6-10.3) mg/dL
[2018-11-20] MEDS: Lactobacillus 1 EACH CAP.SPRINK PO SCH (09:23)
[2018-11-20] MEDS: Nicotine 21 MG PATCH.TD24 TD SCH (09:23)
[2018-11-20] MEDS: cefTRIAXone 2,000 MG in Water for inj. (sterile) 20 ML IVP SCH (09:23)
--- NOTE | 2018-11-20 10:49 | Infectious Disease Progress No ---
ID Progress Note Date of Encounter: 11/20/18 Time of Encounter: 10:35 - Subjective Subjective: Patient seen and examined. No acute events noted overnight. Patient states overall he feels better today. Denies fevers, chills, or rigors. Denies chest pain, shortness of breath, or cough. Denies nausea, vomiting, diarrhea, or constipation. Denies abdominal pain or urinary complaints. Denies oral thrush or skin rashes. States the pain and the swelling to his scrotum is markedly improved. States he wants to go home. - Objective CBC & Chem 7: 11/20/18 05:04 11/20/18 05:04 - Exam Vitals: Temp Pulse Resp BP Pulse Ox 97.8 F 79 17 126/76 98 11/20/18 07:20 11/20/18 07:20 11/20/18 07:20 11/20/18 07:20 11/20/18 07:20 Exam: Head: Atraumatic, normal inspection, normocephalic. Eye: EOMI, PERRLA, no scleral icterus noted. ENT: Mucous membranes moist. No odontogenic infection noted. Neck: Normal inspection, no meningismus. Respiratory: Clear to auscultation. No rales, respiratory distress, rhonchi, or wheezes noted. Cardiovascular: Regular rate and rhythm, S1 and S2 audible. No murmurs, rubs, or gallops. GI: Soft, nondistended, normal bowel sounds. : Scrotal erythema, edema, and tenderness markedly improved. Extremities:No joint swelling, pedal edema, or tenderness noted. Neurological: Alert, oriented 3, no focal deficits. Psychiatric: normal affect, normal mood. Skin: Dry, intact, warm. Normal color. No rashes. - Assessment and Plan (1) Sepsis Current Visit: Yes Status: Acute The patient had 3 sepsis criteria. Likely secondary to scrotal cellulitis. Improved. Afebrile. Tachycardia resolved. White blood cell count trending down. Blood cultures drawn 11/15/18 are negative 2 sets. Qualifiers: Sepsis type: sepsis due to unspecified organism Sepsis acute organ d ysfunction status: without acute organ dysfunction Qualified Code(s): A41.9 - Sepsis, unspecified organism SNOMED Code(s): 11074260 (2) Cellulitis of scrotum Current Visit: Yes Status: Acute Causative organism: Unclear. Etiology: Unclear. The patient denies any known trauma or open lesions to the scrotum. Non-purulent. Urine gonococcal and chlamydial testing were negative. Urine culture is negative. CT of the abdomen and pelvis shows findings consistent with cellulitis of the scrotum, but no abscess or Destiney's gangrene. Scrotal UTS shows epididymal orchitis. Urology consulted. No surgical intervention at this point. Clinically improved. Currently on Vanc, Rocephin, and Flagyl. SNOMED Code(s): 75622234 (3) Hypertension Current Visit: Yes Status: Chronic Qualifiers: Hypertension type: unspecified Qualified Code(s): I10 - Essential (primary) hypertension SNOMED Code(s): 37443513 (4) Substance abuse Current Visit: Yes Status: Acute UDS positive for amphetamines and THC. HIV negative. Hepatitis B non-immune. Hepatitis C negative. SNOMED Code(s): 60071102 - Recommendations Recommendations: Continue Vancomycin IV. Pharmacy to dose. Goal trough ~15. Continue Rocephin 2 grams IV daily. Duration of treatment depends on the clinical picture, but likely a total of 14 days. Can transition to Bactrim DS 1 tab PO BID and Keflex 500mg PO TID when ready for discharge to complete a 14 day course. Treat through 11/28/18. Monitor renal function and for drug toxicity and dose-adjust antibiotics. Consult Discharge Plan - Plan Referrals: Tracy Saavedra, [facility] [Advanced Practice Nurse] - 11/24/18 11:15 am
[2018-11-20 11:54] VITALS: BP 144/88
--- NOTE | 2018-11-20 14:31 | Discharge Summary ---
- NOTES TO OUTPATIENT PROVIDER Notes to Outpatient Provider: Post hospital discharge for scrotal cellulitis. Patient is to follow-up with the infectious diseases specialist within 2-4 weeks Orders not resulted at time of discharge: Pending orders 11/15/18 22:10 Culture,Blood [BC] Stat Date of Encounter: 11/20/18 Time of Encounter: 14:28 - Discharge Diagnosis (1) Sepsis Priority: Primary Status: Acute Assessment and Plan: She will be DC on Keflex and Bactrim he is to follow-up with infectious diseases physician within 2 weeks he was trying to leave AMA, after visit with his mother yesterday. Please make sure you discontinue his IV if he does leave AMA tonight Improving leukocytosis continue to trend down 11.4 today, urine culture was negative blood culture still pending. antibiotics treatment plan onwards per ID, appreciate ID and Urology input, discussed with patient given that he has either infiltrated his IV and in need of a PICC for likely outpatient IV antibiotics that he has to be discharged to an ECF given his polysubstance drug use history. Upper extremity DVT was negative Patient is septic with the likely source being the scrotum cellulitis and abscess, leukocytosis trended up from 35.3-41.8 while on vancomycin and Zosyn. Due to concerns of possible testicular penetration and amicable agent was switched to ciprofloxacin and add metronidazole for tissue penetration. STDs is how the differential of the patient and his was at the bedside denies any prior history. Patient seems to attribute these to manipulation of his abscess tooth he does appear to have poor dentition due to concern for hematogenous seeding will obtain 2 D echo given his history of substance abuse Qualifiers: Sepsis type: sepsis due to unspecified organism Sepsis acute organ dysfunction status: without acute organ dysfunction Qualified Code(s): A41.9 - Sepsis, unspecified organism (2) Cellulitis of scrotum Priority: Primary Status: Acute Assessment and Plan: As per stated above GC Chlamydia not dictated he denies any history of STDs. Physical exam no penile discharge, significant scrotal edema with a hard mass palpated, ultrasound of the testicle was unrevealing. will dc home on Keflex 500 twice a day and Bactrim DS twice a day for 2 weeks supply until he sees infectious disease specialist. Patient declined on ECF placement for IV antibiotics (3) Hypertension Priority: Secondary Status: Chronic Assessment and Plan: Pressure trended down although still erratic 144/88 at discharge, he was strongly encouraged and advised to refrain from methenamine use patient is septic but improving, BP is elevated. He is not on any home hype rtensive will start amlodipine and not an ACEI since he is still on vancomycin. Blood pressure 11/16 and 11/17 systolic 128-154/ diastolic 62-113, BP shoot up to 190/129 and remained elevated after 18.50 11/18, suspect another methamphenamine use while hospitalized, repeat urine toxicology is now positive for amphetermine only. Educate patient he is putting himself at risk for stroke. goal BP for next 24 hours no less than systolic 160. increase amlodipine to 10 mg tomorrow will dc hydralazine add toprol xl Qualifiers: Hypertension type: unspecified Qualified Code(s): I10 - Essential (primary) hypertension (4) Substance abuse Priority: Secondary Status: Acute Assessment and Plan: Suspect patient is using phentermine during his hospitalization, repeat urine toxicology is positive for phentermine negative for marijuana he was positive for both an admission Patient initially denies any recent use, but yesterday admitted to amphetamine use and stated his postive screen for marijuana was from being around his friends that smoke marijuana constantly, of note urine tox screen was positive for amphentermine and marijuana, as aforementioned patient would need ECF placement for outpatient IV antibiotics if indicated (5) Dental abscess Priority: Secondary Status: Acute Assessment and Plan: Oral exam revealed multiple dental abscesses, hematogenous seeding is of concern however blood culture negative so far 2 D echo negative Hospital course: Mr. Venegas is a 38 year old male was hospitalized for scrotal cellulitis and sepsis. Work up was unyielding including urinalysis culture and blood culture hepatitis panel GC Chlamydia and 2-D echo. Patient also supposed to be a polysubstance abuser with a urine toxicology screen positive for amphetamines and marijuana. There is also to stay patient was relatively hypertensive and there were concerns with regard to worsening hypertension with amphentermine while in the hospital. He was offered ECF placement for continued IV antibiotics but declined opting route of oral antibiotics. Discharge discussed with: patient, family, nurse, social work, case management, clinical services consultant - Time Spent with Patient Total time spent providing and/or coordinating discharge services: 45 mins Specific discharge activities: Please take all your medications as prescribed strongly consider cessation of amphentermine use as discussed. Please make sure you follow up with your primary care physician within 7 days and infectious disease doctor within 2 weeks - Discharge Medications Prescriptions: New Lactobacillus [Culturelle] 1 each PO BID #60 cap.sprink Nicotine Patch [Nicoderm] 21 mg TD DAILY #30 patch.td24 amLODIPine [Norvasc] 10 mg PO DAILY #30 tablet Metoprolol XL (24 HR) Succ [Toprol Xl] 25 mg PO DAILY #30 tab.er.24h Sulfamethoxazole/Trimeth DS [Bactrim DS] 1 each PO BID #28 tablet cephALEXin [Keflex] 500 mg PO BID #28 capsule Home Medications: Lactobacillus [Culturelle] 1 each PO BID #60 cap.sprink 11/20/18 [Rx] Metoprolol XL (24 HR) Succ [Toprol Xl] 25 mg PO DAILY #30 tab.er.24h 11/20/18 [Rx] Nicotine Patch [Nicoderm] 21 mg TD DAILY #30 patch.td24 11/20/18 [Rx] Sulfamethoxazole/Trimeth DS [Bactrim DS] 1 each PO BID #28 tablet 11/20/18 [Rx] amLODIPine [Norvasc] 10 mg PO DAILY #30 tablet 11/20/18 [Rx] cephALEXin [Keflex] 500 mg PO BID #28 capsule 11/20/18 [Rx] Allergies/Adverse Reactions: Allergy/AdvReac Type Severity Reaction Status Date / Time hydrocodone Allergy Hives Verified 10/05/15 17:07 Date of admission: 11/16/18 00:12 Primary care physician: PCP NONE Consults: 11/15/18 19:58 Consult to Urology [CONS] Stat Consulting Provider: Urology [facility]y Reason for Consult: scrotal cellulitis Time Notified: 19:59 Call Completed: Yes 11/17/18 10:39 Consult to Invasive Line Access Team [CONS] Routine Reason for Consult: Picc Line Insertion Line Type: PICC PICC line 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 Call Completed: No 11/17/18 12:45 Consult to Invasive Line Access Team [CONS] Routine Reason for Consult: senior living antibiotics Line Type: EPIV PICC line indications: detention Med/Antibiotic Discharging clinician: Rose Morgan Anticipated date of discharge: 11/20/18 - Constitutional Vitals: Temp Pulse Resp BP Pulse Ox 98.4 F 91 17 144/88 99 11/20/18 11:53 11/20/18 11:53 11/20/18 11:53 11/20/18 11:53 11/20/18 11:53 Exam: GEN: NAD, A&O x 3, Pleasant and conversant SKIN: [place] warm acyanotic not jaundice HEART: RRR, no murmurs LUNGS: CTA no wheeze or crackles, overall non labored ABDOMEN; Soft, non tender or distended, BS x 4 normactive EXT: No LE edema, Pedal pulses 1+, radial pulses 2+ PSYCH: Mood and affect is appropriate - Patient Status Disposition: Home, Self-Care Condition: Good Overall status at discharge: patient is progressing back to baseline - Discharge Instructions Instructions: Cellulitis (DC), Sepsis (DC) Follow Up With: Tracy Saavedra CNP [Advanced Practice Nurse] - 11/24/18 11:15 am Additional Instructions: Please you need a scrotal support this can be purchased at a [facility], or local pharmacy - Diet and Activity Activity: resume usual activities as tolerated Diet: low fat, low cholesterol, low salt diet
== END 2018-11-20 15:26 | disposition home or self-care (01) | DRG 720 ==
LOC: EMEROOARM 19:13 → 3ANU 19:13 → SUATTDRO 11-16 00:12
PROVIDERS: ADMIT Internal Medicine; ATTEND Pharmacist